=== PATIENT | female | born 1980 | race Hispanic/Latino ===

== ENCOUNTER → 2017-12-04 | Emergency (ER) | payer BC ==
[~2017-12-04] MED LIST: BACTRIM DS TAB1 EACH PO; LANTUS100 UNITS/ SQ; LEVOTHYROXINE125 MCG PO; NOVOLIN 70100 UNITS/ SQ; TRANDATE100 MG PO
== END | disposition left against medical advice (07) ==
LOC: ER 11:06
DX: E80.7 Disorder of bilirubin metabolism, unspecified (principal)

== ENCOUNTER 2018-10-28 09:04 | Inpatient (IN) | payer BC, OTHER ==
[~2018-10-28] VITALS: Ht 162.6 cm; Wt 96.2 kg
[2018-10-28] MEDS ORDERED: SODIUM CHLORIDE 0.9% 1000ML 1,000 ML IV STA ×3 (09:58→13:25)
[2018-10-28] MEDS ORDERED: ACETAMINOPHEN 325 MG TAB PO ONE (10:15)
[2018-10-28 10:19] LABS: CLARITY,URINE CLEAR (CLEAR); COLOR,URINE YELLOW (YELLOW); PREGNANCY TEST, URINE NEGATIVE (NEGATIVE)
[2018-10-28 10:20] LABS: BILIRUBIN,URINE NEGATIVE (NEGATIVE); KETONES,URINE NEGATIVE (NEGATIVE); LEUKOCYTE ESTERASE ,URINE NEGATIVE (NEGATIVE); NITRITE,URINE NEGATIVE (NEGATIVE); PROTEIN,URINE DIPSTICK NEGATIVE (NEGATIVE); URINE UROBILINOGEN 0.2 mg/dL (0.2 - 1)
[2018-10-28 10:22] LABS: BACTERIA,URINE FEW /HPF; EPITHELIAL CELLS,URINE FEW /LPF; RBC,URINE 0-5 /HPF (0-5); WBC,URINE (MAN) 0-5 /HPF (0-5)
[2018-10-28] MEDS ORDERED: KETOROLAC TROMETHAMINE 30 MG/ML VIAL IV ONE (10:30)
[2018-10-28] MEDS ORDERED: PANTOPRAZOLE 40 MG 10ML VIAL IV ONE (10:30)
[2018-10-28] MEDS ORDERED: ONDANSETRON HCL INJ 2MG/ML 2ML 2 MG/ML VIAL IV ONE (10:30)
[2018-10-28 10:46] LABS: BASOPHILS % 0.4 % (0.0-1.0); EOSINOPHILS # (AUTO) 0.1 (0.0-0.4); EOSINOPHILS % 1.3 % (0.0-6.0); HEMATOCRIT 42.4 % (34.2-44.1); HEMOGLOBIN 15.1 g/dL (12.0-16.0); LYMPHOCYTES # (AUTO) 1.1 (1.0-3.2); LYMPHOCYTES % 13.4 % (18.0-39.1); MEAN CORPUSCULAR HEMOGLOBIN 30.4 pg (28-32); MEAN CORPUSCULAR HGB CONC 35.6 g/dL (31-35); MEAN CORPUSCULAR VOLUME 85.5 fL (81-99); MONOCYTES # (AUTO) 0.6 (0.2-0.8); MONOCYTES % 7.1 % (4.4-11.3); NEUTROPHILS # (AUTO) 6.3 (2.1-6.9); NEUTROPHILS % 77.2 % (38.7-80.0); PLATELET COUNT 401 x10e3/uL (140-360); RED BLOOD COUNT 4.96 x10e6/uL (3.6-5.1); RED CELL DISTRIBUTION WIDTH 12.2 % (11.7-14.4)
[2018-10-28 11:02] LABS: ALANINE AMINOTRANSFERASE 102 IU/L (0-55); ALBUMIN 4.1 g/dL (3.5-5.0); ALBUMIN/GLOBULIN RATIO 1.2 (0.8-2.0); ALKALINE PHOSPHATASE 104 IU/L (40-150); ANION GAP 17.1 mmol/L (8-16); BLOOD UREA NITROGEN 8 mg/dL (7-26); BUN/CREATININE RATIO 9 (6-25); CALCIUM 9.5 mg/dL (8.4-10.2); CARBON DIOXIDE 23 mmol/L (22-29); CHLORIDE 98 mmol/L (98-107); CREATININE, SERUM 0.85 mg/dL (0.57-1.11); EST GLOMERULAR FILTRATION RATE > 60 ML/MIN (60-); GLUCOSE 194 mg/dL (74-118); POTASSIUM 4.1 mmol/L (3.5-5.1); SODIUM 134 mmol/L (136-145)
--- NOTE | 2018-10-28 11:37 | Diagnostic Imaging Report ---
EXAMINATION: CHEST 2 VIEWS INDICATION: ^SEPSIS ^Y COMPARISON: Chest x-ray 02/21/2013 FINDINGS: PA and lateral views. The patient's arms overlie the upper chest. TUBES and LINES: None. LUNGS: Lungs are well inflated. Right infrahilar airspace opacity corresponds to the right lower lobe. Left lung is clear. PLEURA: No pleural effusion or pneumothorax. HEART AND MEDIASTINUM: The cardiomediastinal silhouette is unremarkable.. BONES AND SOFT TISSUES: No focal osseous lesions. Soft tissues are unremarkable. UPPER ABDOMEN: No free air under the diaphragm. IMPRESSION: Right lower lobe airspace opacity is suggestive of pneumonia. Recommend close interval follow-up. Signed by: Dr. Tammy Luis MD on 10/28/2018 11:34 AM
[2018-10-28 12:07] LABS: AMYLASE 25 U/L (25-125); LIPASE 31 U/L (8-78)
--- NOTE | 2018-10-28 13:17 | Diagnostic Imaging Report ---
CT Abdomen And Pelvis with Intravenous Contrast INDICATION: ^ABD PAIN, N/V, ELEV LFT'S TECHNIQUE: Thin collimation axial images obtained from the diaphragm to the level of the pubic symphysis following the uneventful administration of 100 cc of low osmolar, nonionic intravenous contrast. Dose reduction techniques used: Automated exposure control, adjustment of the mAs and/or kVp according to patient size, standardized low-dose protocol, and/or iterative reconstruction technique. RADIATION DOSE: Total DLP: 709.6 mGy*cm Estimated effective dose: (DLP x 0.015 x size factor) mSv CTDIvol has been reviewed. It is below the limits set by the Radiation Protocol Committee (RPC). COMPARISON: CT abdomen/pelvis 12/07/2012, CTA abdomen/pelvis 02/21/2013. ABDOMEN FINDINGS: Lung Bases: Nodule in the anterior basal segment of the right lower lobe is stable and measures 3 mm. No pulmonary infiltrates. Visualized portion of the mediastinum is normal. Liver: Decreased attenuation consistent with steatosis. The right lobe measures 23 cm in length. * New predominantly hypoattenuating, heterogeneously enhancing lesion in segment 2 near the capsule measures 2.6 x 3.9 cm. * New focus of hypoattenuation in the anterior aspect of segment 4 measures 2.8 x 1.4 cm in the coronal plane. There is a nodular focus of increased attenuation at its superior aspect (coronal image 23). * New predominantly hypoattenuating, heterogeneously enhancing lesion in segment 6 measures 4.2 x 2.1 cm adjacent to the posterior capsule. * New hypoattenuating lesion in segment 5 is somewhat curvilinear in appearance and extends for approximately 3 cm. * New subcapsular focus of hypoattenuation the medial aspect of segment 6 measures 11 mm (series 2, image 31). * New subcapsular focus of hypoattenuation in segment 2/3 (series 2, image 29). No perihepatic fluid collection or inflammation. Gallbladder: Present and appears normal. Biliary tree: No biliary ductal dilatation. Pancreas: Normal attenuation without mass or ductal dilatation. Spleen: Top normal in size. No evidence of mass. Adrenal Glands: No evidence for mass. Kidneys: Right: Normal enhancement. No soft tissue mass. No hydronephrosis. Left: Normal enhancement. No soft tissue mass. No hydronephrosis. Lymph Nodes: No enlarged abdominal or retroperitoneal lymph nodes. Aorta: Normal in diameter. Portal vein: Measures 16 mm in diameter and is widely patent. PELVIS FINDINGS: Bowel: Stomach: Normal in caliber with normal wall thickness. Small Bowel: Normal in caliber with normal wall thickness. Large Bowel: Normal in caliber with normal wall thickness. Appendix: Normal appendix. Bladder: Normal. The uterus is present and normal in morphology. No adnexal mass. Peritoneum/retroperitoneum: No free fluid or fluid collection. Bones: Unremarkable for age. Soft tissues: Anterior abdominal wall subcutaneous mass in the right lower quadrant measures 2.1 x 2.5 cm (previously, 1.3 x 1.8 cm). No new subcutaneous masses. IMPRESSION: 1. Steatosis and hepatomegaly. New heterogeneously enhancing masses throughout the parenchyma. This may be the sequela of liver injury or the result of focal fat deposition. Another entity to consider would be a neoplastic process given increasing size of the abdominal wall skin mass. Recommend correlation with trauma history and MRI dedicated to the liver on an outpatient basis for further evaluation. 2. Enlarging right lower quadrant abdominal wall mass of uncertain etiology. Biopsy/excision is recommended. 3. Top normal size of the spleen and enlarged portal vein suggestive of portal hypertension. 4. No evidence of lymphadenopathy. 5. No evidence for bowel obstruction or inflammation. Normal appendix. Signed by: Dr. Tammy Luis MD on 10/28/2018 1:13 PM
[2018-10-28] MEDS: SODIUM CHLORIDE 0.9% 1000ML 1,000 ML IV ONE ×2 (13:30→13:49)
[2018-10-28] MEDS ORDERED: HYDROCODONE/CHLORPHENIRAMINE 5 ML LIQCR PO PRN (13:30)
[2018-10-28] MEDS ORDERED: SODIUM CHLORIDE 0.9% 1000ML 1,000 ML IV SCH (13:57)
[2018-10-28] MEDS ORDERED: IPRATROPIUM BROMIDE 0.02% 2.5 ML NEB NEB PRN (14:00)
[2018-10-28] MEDS ORDERED: ALBUTEROL SULF 0.083% NEB SOLN 3 ML NEB NEB PRN (14:00)
[2018-10-28] MEDS ORDERED: ONDANSETRON HCL INJ 2MG/ML 2ML 2 MG/ML VIAL IV PRN (14:00)
[2018-10-28] MEDS ORDERED: CEFTRIAXONE SOD 1 GM/NS 50 ML 50 ML IV SCH (14:00)
[2018-10-28] MEDS ORDERED: AMLODIPINE BESYL5 MG PO (14:05)
[2018-10-28] MEDS ORDERED: VICTOZA 2-0.6 MG/0.1 SC (14:05)
[2018-10-28] MEDS ORDERED: LOSARTAN-HCTZ1 EAC2 PO (14:06)
--- OUTSIDE RECORDS SUMMARY | 2018-10-28 14:07 | XMS REPORT ---
[facility] Address Unknown Phone Unavailable Care Team Providers Care Oil Analyst Name Role Phone Estrellita CHRIS Unavailable Unavailable Problems This patient has no known problems. Allergies, Adverse Reactions, Alerts This patient has no known allergies or adverse reactions. Medications This patient has no known medications. Results Test Description Test Time Test Comments Text Results Atomic Results Result Comments CT ABDOMEN/PELVIS W 2018-10-28 12:59:00 [place] [address] Patient Name: PRESTON LINARES MR #: [id number] : 1980 Age/Sex: 38/F Req #: [id number] Adm Physician: Ordered by: LUIS CHRIS MD Report #: [id number] Location: ER Room/Bed: Procedure: [id number] CT/CT ABDOMEN/PELVIS W Exam Date: Exam Time: REPORT STATUS: Signed CT Abdomen And Pelvis with Intravenous Contrast INDICATION: ABD PAIN, N/V, ELEV LFT'S TECHNIQUE: Thin collimation axial images obtained from the diaphragm to the level of the pubic symphysis following the uneventful administration of 100 cc of low osmolar, nonionic intravenous contrast. Dose reduction techniques used: Automated exposure control, adjustment of the mAs and/or kVp according to patient size, standardized low- dose protocol, and/or iterative reconstruction technique. RADIATION DOSE: Total DLP: 709.6 mGy*cm Estimated effective dose: (DLP x 0.015 x size factor) mSv CTDIvol has been reviewed. It is below the limits set by the Radiation Protocol Committee (RPC). COMPARISON: CT abdomen/pelvis 12/07/2012, CTA abdomen/pelvis 02/21/2013. ABDOMEN FINDINGS: Lung Bases: Nodule in the anterior basal segment of the right lower lobe is stable and measures 3 mm. No pulmonary infiltrates. Visualized portion of the mediastinum is normal. Liver: Decreased attenuation consistent with steatosis. The right lobe measures 23 cm in length. * New predominantly hypoattenuating, heterogeneously enhancing lesion in segment 2 near the capsule measures 2.6 x 3.9 cm. * New focus of hypoattenuation in the anterior aspect of segment 4 measures 2.8 x 1.4 cm in the coronal plane. There is a nodular focus of increased attenuation at its superior aspect (coronal image 23). * New predominantly hypoattenuating, heterogeneously enhancing lesion in segment 6 measures 4.2 x 2.1 cm adjacent to the posterior capsule. * New hypoattenuating lesion in segment 5 is somewhat curvilinear in appearance and extends for approximately 3 cm. * New subcapsular focus of hypoattenuation the medial aspect of segment 6 measures 11 mm (series 2, image 31). * New subcapsular focus of hypoattenuation in segment 2/3 (series 2, image 29). No perihepatic fluid collection or inflammation. Gallbladder: Present and appears normal. Biliary tree: No biliary ductal d ilatation. Pancreas: Normal attenuation without mass or ductal dilatation. Spleen: Top normal in size. No evidence of mass. Adrenal Glands: No evidence for mass. Kidneys: Right: Normal enhancement. No soft tissue mass. No hydronephrosis. Left: Normal enhancement. No soft tissue mass. No hydronephrosis. Lymph Nodes: No enlarged abdominal or retroperitoneal lymph nodes. Aorta: Normal in diameter. Portal vein: Measures 16 mm in diameter and is widely patent. PELVIS FINDINGS: Bowel: Stomach: Normal in caliber with normal wall thickness. Small Bowel: Normal in caliber with normal wall thickness. Large Bowel: Normal in caliber with normal wall thickness. Appendix: Normal appendix. Bladder: Normal. The uterus is present and normal in morphology. No adnexal mass. Peritoneum/retroperitoneum: No free fluid or fluid collection. Bones: Unremarkable for age. Soft tissues: Anterior abdominal wall subcutaneous ma ss in the right lower quadrant measures 2.1 x 2.5 cm (previously, 1.3 x 1.8 cm). No new subcutaneous masses. IMPRESSION: 1. Steatosis and hepatomegaly. New heterogeneously enhancing masses throughout the parenchyma. This may be the sequela of liver injury or the result of focal fat deposition. Another entity to consider would be a neoplastic process given increasing size of the abdominal wall skin mass. Recommend correlation with trauma history and MRI dedicated to the liver on an outpatient basis for further evaluation. 2. Enlarging right lower quadrant abdominal wall mass of uncertain etiology. Biopsy/excision is recommended. 3. Top normal size of the spleen and enlarged portal vein suggestive of portal hypertension. 4. No evidence of lymphadenopathy. 5. No evidence for bowel obstruction or inflammation. Normal appendix. Signed by: Dr. Elke Luis MD on 10/28/2018 1:13 PM Dictated By: ELKE LUIS MD [id number] Transcribed By: RIKI on 10/28/18 1313 COPY TO: LUIS CHRIS MD CHEST 2 VIEWS 2018-10-28 11:32:00 [place] [address] Patient Name: PRESTON LINARES MR #: [id number] : 1980 Age/Sex: 38/F Req #: [id number] Adm Physician: Ordered by: LUIS CHRIS MD Report #: [id number] Location: ER Room/Bed: Procedure: [id number] DX/CHEST 2 VIEWS Exam Date: Exam Time: REPORT STATUS: Signed EXAMINATION: CHEST 2 VIEWS INDICATION: SEPSIS Y CO MPARISON: Chest x-ray 02/21/2013 FINDINGS: PA and lateral views. The patient's arms overlie the upper chest. TUBES and LINES: None. LUNGS: Lungs are well inflated. Right infrahilar airspace opacity corresponds to the right lower lobe. Left lung is clear. PLEURA: No pleural effusion or pneumothorax. HEART AND MEDIASTINUM: The cardiomediastinal silhouette is unremarkable.. BONES AND SOFT TISSUES: No focal osseous lesions. Soft tissues are unremarkable. UPPER ABDOMEN: No free air under the diaphragm. IMPRESSION: Right lower lobe airspace opacity is suggestive of pneumonia. Recommend close interval follow-up. Signed by: Dr. Elke Luis MD on 10/28/2018 11:34 AM Dictated By: ELKE LUIS MD 1134 Transcribed By: RIKI on 10/28/18 1134 COPY TO: LUIS CHRIS MD
[2018-10-28] MEDS: AZITHROMYCIN 500MG/NS 250 ML 250 ML IV SCH (14:12)
[2018-10-28] MEDS ORDERED: ACETAMINOPHEN 325 MG TAB PO PRN (14:15)
--- NOTE | 2018-10-28 14:20 | NUR ---
Dr. Nicholson at bedside
--- NOTE | 2018-10-28 14:36 | NUR ---
Report called to nurse Josseline.
[2018-10-28] MEDS: METOPROLOL TARTRATE 25 MG TAB PO SCH ×2 (14:50→22:00)
[2018-10-28] MEDS: BENZONATATE 100 MG CAP PO SCH ×2 (14:50→20:36)
--- NOTE | 2018-10-28 15:00 | NUR ---
This 38 y/0 female admitted the unit from the ER with dx of pneumonia, dehydration,nausea,vomiting and heart rate in 120 range/ The pt arrived with tele and JOWL TRIMMER monitor in place Sinus tach at 118. There is an iv to the right ac with n/s infusing @150 cc/hr. Blood glucose 184. Antibiotic is infusing as well. The pt. is awake, alert and oriented times 4. She was initiated to the room.
[2018-10-28 16:05] VITALS: BP 139/71
[2018-10-28] MEDS: INSULIN LISPRO 100 UNIT/1 ML 3ML VIAL SQ SCH ×2 (16:30→20:37)
[2018-10-28 16:45] VITALS: BP 139/71
[2018-10-28 16:49] VITALS: BP 139/71
[2018-10-28] MEDS ORDERED: SODIUM CHLORIDE 0.9% 50ML 50 ML ONE (18:29)
[2018-10-28] MEDS ORDERED: IOPAMIDOL 370 MG/ML 200 ML INFUS..BTL INJ ONE (18:29)
--- NOTE | 2018-10-28 18:47 | NUR ---
Report to the oncoming nurse.
[2018-10-28 20:30] VITALS: BP 139/64
[2018-10-28 23:45] VITALS: BP 147/76
[2018-10-29 04:30] VITALS: BP 123/68
--- NOTE | 2018-10-29 05:26 | NUR ---
Patient laying in bed with HOB slightly elevated. AAO x 4. No sob noted. No acute distress noted. Patient reports of 0/10 for pain. Bed at low position and locked. Call light within reach and reminded patient to utilize when help is needed. Patient in stable condition and will continue to monitor. Patient noted with temp at 103.5 and HR at 140, also noted covered under 6 blankets and room temp very hot. Removed blankets, lower room temp and rechecked in 30mins and temp at 100.6 and HR at 122. Patient reports of no chest pain, no headache.
--- NOTE | 2018-10-29 07:10 | NUR ---
RCD PT AT BED PT IS ALERT AND ORIENTED ASSESSMENT DONE PT RESTING ON BED NO SIGNS OF ANY DISTRESS NOTED IV PATENT BED LOW AND LOCKED CALL LIGHT IN REACH
[2018-10-29 07:18] LABS: BASOPHILS % 0.1 % (0.0-1.0); EOSINOPHILS % 0.6 % (0.0-6.0); HEMOGLOBIN 12.7 g/dL (12.0-16.0); LYMPHOCYTES # (AUTO) 1.8 (1.0-3.2); LYMPHOCYTES % 26.6 % (18.0-39.1); MEAN CORPUSCULAR HGB CONC 33.4 g/dL (31-35); MEAN CORPUSCULAR VOLUME 89.6 fL (81-99); MONOCYTES # (AUTO) 0.6 (0.2-0.8); MONOCYTES % 9.3 % (4.4-11.3); NEUTROPHILS # (AUTO) 4.2 (2.1-6.9); NEUTROPHILS % 62.8 % (38.7-80.0); PLATELET COUNT 307 x10e3/uL (140-360); RED BLOOD COUNT 4.24 x10e6/uL (3.6-5.1); RED CELL DISTRIBUTION WIDTH 12.3 % (11.7-14.4)
[2018-10-29 07:29] LABS: PROTHROMBIN TIME 14.1 seconds (11.9-14.5)
[2018-10-29] MEDS: INSULIN LISPRO 100 UNIT/1 ML 3ML VIAL SQ SCH ×4 (07:30→20:59)
[2018-10-29 07:49] LABS: ALANINE AMINOTRANSFERASE 85 IU/L (0-55); ALBUMIN 3.3 g/dL (3.5-5.0); ALBUMIN/GLOBULIN RATIO 1.2 (0.8-2.0); ALKALINE PHOSPHATASE 84 IU/L (40-150); ANION GAP 13.8 mmol/L (8-16); BLOOD UREA NITROGEN 6 mg/dL (7-26); BUN/CREATININE RATIO 7 (6-25); CALCIUM 8.3 mg/dL (8.4-10.2); CARBON DIOXIDE 23 mmol/L (22-29); CHLORIDE 103 mmol/L (98-107); CREATININE, SERUM 0.81 mg/dL (0.57-1.11); EST GLOMERULAR FILTRATION RATE > 60 ML/MIN (60-); GLUCOSE 210 mg/dL (74-118); POTASSIUM 3.8 mmol/L (3.5-5.1); SODIUM 136 mmol/L (136-145)
[2018-10-29 08:00] VITALS: BP 100/52
[2018-10-29 09:00] VITALS: BP 100/52
[2018-10-29] MEDS: BENZONATATE 100 MG CAP PO SCH ×3 (09:00→20:58)
[2018-10-29] MEDS: CEFTRIAXONE SOD 1 GM/NS 50 ML 50 ML IV SCH (09:00)
[2018-10-29] MEDS ORDERED: SODIUM CHLORIDE 0.9% 250ML 250 ML ONE (09:09)
[2018-10-29] MEDS: AZITHROMYCIN 500MG/NS 250 ML 250 ML IV SCH (09:20)
[2018-10-29 12:00] VITALS: BP 112/59
--- NOTE | 2018-10-29 13:19 | NUR ---
SOCIAL WORK INITIAL ASSESSMENT Steel Wheel Engraver met with patient at bedside to discuss plan of care with patient/family. CM/SW role and care transitions discussed. Patient lives: with her two children (age 6 and 8) Admit/Transfer: Admit POA/Emergency contact: Francis Li (boyfriend) [phone] Current/Previous Home Health: N/A PCP/Follow-up Care: Does not have Dr. Jon Banuelos Current/Previous DME: N/A Other Services: Employment Status: works for [employer] Areas of Concerns: Referral Needs: Education Needs: IMM/ARREOLA given and signed (if applicable): Goal for discharge: Patient states children are being cared for by her boyfriends sister while in the hospital. Patient states she was independent of all ADL goal prior to hospital admission.
[2018-10-29 16:00] VITALS: BP 122/69
--- NOTE | 2018-10-29 16:00 | NUR ---
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
--- NOTE | 2018-10-29 18:41 | NUR ---
PT RESTING ON BED BED SIDE REPORT GIVEN TO ONCOMING NURSE
--- NOTE | 2018-10-29 19:40 | NUR ---
patient received. Patient is resting in bed. Resp even and unlabored. No acute distress noted. Patient denies of any pain or discomfort. tele in place. family at bed time. call light within reach. instruct to call for assistance. bed low/locked. continue to monitor closely
[2018-10-29 21:10] VITALS: BP 139/65
[2018-10-30 01:31] VITALS: BP 139/75
[2018-10-30 05:49] VITALS: BP 153/71
--- NOTE | 2018-10-30 07:10 | NUR ---
RCD PT AT BED PT IS ALERT AND ORIENTED ASSESSMENT DONE PT RESTING ON BED NO SIGNS OF ANY DISTRESS NOTED BED LOW AND LOCKED CALL LIGHT IN REACH
[2018-10-30] MEDS: INSULIN LISPRO 100 UNIT/1 ML 3ML VIAL SQ SCH ×3 (07:30→16:30)
[2018-10-30 08:30] VITALS: BP 150/70
[2018-10-30] MEDS ORDERED: LORAZEPAM INJ 2 MG/ML VIAL IV PRN (08:45)
[2018-10-30 09:00] VITALS: BP 150/70
[2018-10-30] MEDS: BENZONATATE 100 MG CAP PO SCH (09:00)
[2018-10-30] MEDS: CEFTRIAXONE SOD 1 GM/NS 50 ML 50 ML IV SCH ×2 (09:00→13:00)
[2018-10-30] MEDS ORDERED: AZITHROMYCIN 250 MG TAB PO SCH (11:15)
[2018-10-30] MEDS ORDERED: BENZONATATE 100 MG CAP PO PRN (11:30)
[2018-10-30] MEDS ORDERED: AZITHROMYCIN250 MG PO (11:41)
[2018-10-30 12:35] VITALS: BP 160/86
--- NOTE | 2018-10-30 12:52 | Discharge Summary ---
PRIMARY CARE DOCTOR: Dr. Kizzy Urbano. FINAL DIAGNOSIS: Sepsis present on admission due to community-acquired pneumonia. SECONDARY DIAGNOSES 1. Liver lesions on imaging studies. 2. Diabetes. 3. Hypertension. PROCEDURES/STUDIES PERFORMED 1. Computed tomography of the abdomen and pelvis. 2. Magnetic resonance imaging of the liver. CONSULTANTS: None. HISTORY: Per H&P. HOSPITAL COURSE: Patient was aggressively hydrated. She did spike a fever of 103. Finally her tachycardia got better. Patient has been afebrile for more than 24 hours now. Her influenza was negative. Patient's initial AST was 110, ALT was 102. INR is normal. Chest x-ray shows a right lower lobe pneumonia. Repeat LFTs were better. A CT shows liver lesions possibly due to fatty liver, also cannot rule out a liver injury potentially due to hypoperfusion with her sepsis. Currently we are waiting for MRI of the liver to be done. If unremarkable, patient will be going home. Her acute hepatitis panel is still pending. Patient also has a right lower quadrant just above her groin soft-tissue nodule. This was present on a CT scan six years ago. Patient stated she has been evaluated by a computer recycling worker before and thought to be a cyst. It is nontender. Patient will be going home on five more days of azithromycin. She received IV Rocephin and IV azithromycin here. Patient was seen and examined today. I will follow up on her hepatitis panel. It took 33 minutes total to discharge this patient. CONDITION ON DISCHARGE: Improved. DISCHARGE MEDICATIONS: Please see medication reconciliation form. GOLD BURR M.D. Job#: [id number] EV cc:KIZZY URBANO MD
[2018-10-30] MEDS ORDERED: GADOBENATE DIMEGLUMINE 1 ML IV ONE (13:47)
[2018-10-30 16:29] VITALS: BP 119/68
--- NOTE | 2018-10-30 16:53 | Diagnostic Imaging Report ---
EXAMINATION: MRI Abdomen with and without contrast. TECHNIQUE: Axial T1 nonfat sat in and out of phase, axial T2 fat sat, coronal T2 nonfat sat, axial DWI and ADC MR images of the abdomen were obtained before and after the administration of 20 cc of gadolinium. Axial T1 fat sat GRE dynamic images in precontrast, arterial, venous and delayed phases were obtained. CLINICAL HISTORY:Hepatic lesions on CT COMPARISON: CT abdomen and pelvis 10/28/2018 FINDINGS: Exam limited by motion artifact. LOWER THORAX: Unremarkable. LIVER: The hepatic contour is normal.. The liver is enlarged, measuring 21.9 cm in length and the right midclavicular line. Diffuse signal dropout of the hepatic parenchyma on out of phase images, consistent with diffuse steatosis. Several hepatic lesions are again identified, as follows: * Stable 2.8 x 1.4 cm T1 mildly hyperintense, T2 mildly hyperintense focal lesion in hepatic segment IV (series 3, image 40), which shows signal dropout on out of phase and fat suppressed images (for example series 3, image 39 and series 10, image 24), with mild enhancement of the most subcapsular portion (for example series 10, image 129). No mass effect, and there are normal vessels coursing through this lesion. No restricted diffusion. * Stable ill-defined 4.2 x 2 x 1 cm lesion in the peripheral aspect of hepatic segment , which shows T1 and T2 hyperintensity (series 3, images 50 and series 7, image 14) and signal dropout on fat-suppressed images (series 5, image 25). There is wedge-shaped enhancement of the most peripheral/subcapsular portion (series 10, image 142). No mass effect, and there are normal vessels coursing through this lesion. No restricted diffusion. * Similar mildly T1 and T2 hyperintense lesion in hepatic segment V (series 3, image 74 and series 7, image 24), which show signal dropout on out of phase images (series 3, image 73) as well as fat-suppressed images (series 10, image 44). No significant enhancement. No visible distortion or mass effect. * Previously described hypoattenuating areas in segment 2-3 and segment 2 near the capsule are not clearly visualized due to breathing motion artifact. No suspicious enhancing lesions. BILIARY: No ductal dilatation or filling defect. The gallbladder has a normal appearance. PANCREAS: No mass or ductal dilatation. SPLEEN: No splenomegaly. ADRENALS: No nodules. KIDNEYS: No hydronephrosis or solid enhancing mass in the imaged portion of the kidneys. PERITONEUM / RETROPERITONEUM: No upper abdominal free fluid. GI TRACT: No bowel dilation. LYMPH NODES: No upper abdominal lymphadenopathy. VESSELS: The celiac trunk, superior and inferior mesenteric and bilateral renal arteries are patent. The portal, superior mesenteric and splenic veins are patent. No collateral circulation. BONES AND SOFT TISSUES: No abnormal bone marrow signal. No soft tissue abnormalities. IMPRESSION: 1. Hepatomegaly with diffuse steatosis. 2. Several hepatic lesions as described which show no mass effect and have signal characteristics consistent with fat, which favor areas of focal fatty infiltration. Focal areas of hepatic injury could be considered if there is prior history of surgery. Hepatic angiomyolipomas or adenomas are less likely, given the lack of mass effect and enhancement characteristics. No suspicious enhancing lesions are identified. Signed by: Dr. Hesham Marks M.D. on 10/30/2018 4:50 PM
--- NOTE | 2018-10-30 17:10 | NUR ---
PAGED DR BURR TO NOTIFY THE REPORT AND LEFT MESSAGE
--- NOTE | 2018-10-30 17:29 | NUR ---
DR BURR RETURNED CALL NOTIFIED MRI REPORT AND GOT THE APPROVAL TO DISCHARGE
--- NOTE | 2018-10-30 18:02 | NUR ---
PT WENT HOME IN SAFE CONDITION
== END 2018-10-30 18:16 | disposition home or self-care (01) | DRG 871 ==
LOC: ER 09:04 → ERHOLD 13:57 → MED/SURG2 15:13
PROVIDERS: ADMIT Internal Medicine; ATTEND Internal Medicine
DX: A41.9 Sepsis, unspecified organism (principal); J18.9 Pneumonia, unspecified organism; R19.03 Right lower quadrant abdominal swelling, mass and lump; E11.65 Type 2 diabetes mellitus with hyperglycemia; I10 Essential (primary) hypertension; E03.9 Hypothyroidism, unspecified; Z82.49 Family history of ischemic heart disease and other diseases of the circulatory system; Z88.8 Allergy status to other drugs, medicaments and biological substances; E86.0 Dehydration; R16.0 Hepatomegaly, not elsewhere classified; K76.0 Fatty (change of) liver, not elsewhere classified; Z83.3 Family history of diabetes mellitus; K76.9 Liver disease, unspecified; Z79.4 Long term (current) use of insulin
CPT/HCPCS: 36415; 71046; 74177; 74183; 80053; 81001; 81025; 82150; 82948; 83518; 83605; 83690; 83735; 84443; 85025; 85610; 87040; 87070; 87086; 87400; 93005; 99284; J0456; J0696; J1885; J2060; J2405; J7030; J7050; Q9967

== ENCOUNTER 2023-03-10 13:52 | Emergency (ER) | payer BC, OTHER ==
[~2023-03-10] VITALS: Ht 162.6 cm; Wt 96.2 kg
[~2023-03-10 13:52] MED LIST changes: +AMLODIPINE BESYL5 MG PO; +AZITHROMYCIN250 MG PO; +LOSARTAN-HCTZ1 EAC2 PO; +VICTOZA 2-0.6 MG/0.1 SC
[2023-03-10] MEDS ORDERED: SODIUM CHLORIDE 0.9% 1000ML 1,000 ML IV STA ×2 (14:14→15:27)
[2023-03-10] MEDS ORDERED: ONDANSETRON HCL INJ 2MG/ML 2ML 2 MG/ML VIAL IV STA (14:14)
[2023-03-10 14:33] LABS: BASOPHILS % 0.2 % (0.0-1.0); EOSINOPHILS # (AUTO) 0.2 (0.0-0.4); EOSINOPHILS % 1.6 % (0.0-6.0); HEMATOCRIT 49.2 % (34.2-44.1); HEMOGLOBIN 16.9 g/dL (12.0-16.0); LYMPHOCYTES # (AUTO) 2.5 (1.0-3.2); LYMPHOCYTES % 20.9 % (18.0-39.1); MEAN CORPUSCULAR HEMOGLOBIN 30.2 pg (28-32); MEAN CORPUSCULAR HGB CONC 34.3 g/dL (31-35); MONOCYTES # (AUTO) 0.7 (0.2-0.8); MONOCYTES % 5.4 % (4.4-11.3); NEUTROPHILS # (AUTO) 8.7 (2.1-6.9); NEUTROPHILS % 71.7 % (38.7-80.0); PLATELET COUNT 529 x10e3/uL (140-360); RED BLOOD COUNT 5.59 x10e6/uL (3.6-5.1); RED CELL DISTRIBUTION WIDTH 12.9 % (11.7-14.4)
[2023-03-10 14:45] LABS: INR 0.97; PROTHROMBIN TIME 13.4 seconds (11.9-14.5)
[2023-03-10 14:46] LABS: PARTIAL THROMBOPLASTIN TIME 29.9 seconds (23.8-35.5)
[2023-03-10 15:03] LABS: ALANINE AMINOTRANSFERASE 18 IU/L (0-55); ALBUMIN 4.1 g/dL (3.5-5.0); ALBUMIN/GLOBULIN RATIO 0.9 (0.8-2.0); ALKALINE PHOSPHATASE 99 IU/L (40-150); BLOOD UREA NITROGEN 13 mg/dL (7-26); BUN/CREATININE RATIO 13 (6-25); CALCIUM 9.2 mg/dL (8.4-10.2); CARBON DIOXIDE 21 mmol/L (22-29); CHLORIDE 100 mmol/L (98-107); CREATINE KINASE 21 IU/L (29-168); GLUCOSE 219 mg/dL (74-118); MAGNESIUM 1.8 MG/DL (1.3-2.1); SODIUM 134 mmol/L (136-145)
[2023-03-10] MEDS ORDERED: IOPAMIDOL 370 MG/ML 100 ML INFUS..BTL INJ ONE (15:12)
[2023-03-10 15:35] LABS: CLARITY,URINE SL CLOUDY (CLEAR); COLOR,URINE YELLOW (YELLOW); LEUKOCYTE ESTERASE ,URINE NEGATIVE (NEGATIVE); NITRITE,URINE NEGATIVE (NEGATIVE); PROTEIN,URINE DIPSTICK 2+ (NEGATIVE)
[2023-03-10 15:36] LABS: KETONES,URINE 1+ (NEGATIVE); URINE UROBILINOGEN 0.2 mg/dL (0.2 - 1)
[2023-03-10 15:48] LABS: EPITHELIAL CELLS,URINE MANY /LPF
[2023-03-10 15:49] LABS: RBC,URINE 0-5 /HPF (0-5); WBC,URINE (MAN) 0-5 /HPF (0-5)
[2023-03-10 15:50] LABS: BACTERIA,URINE MODERATE /HPF
[2023-03-10 15:51] LABS: MUCUS,URINE MODERATE (RARE)
[2023-03-10 15:53] LABS: LIPASE 20 U/L (8-78)
[2023-03-10 16:31] LABS: THYROID STIMULATING HORMONE 1.971 uIU/mL (0.350-4.940)
[2023-03-10] MEDS ORDERED: DICYCLOMINE HCL20 MG PO (17:46)
[2023-03-10] MEDS ORDERED: ONDANSETRON ODT4 MG PO (17:46)
[2023-03-10 18:10] VITALS: BP 114/65; PULSE 98; RESP 19; TEMP 97.9; O2SAT 99
== END 2023-03-10 17:55 | disposition home or self-care (01) ==
LOC: ER 14:02
DX: R11.2 Nausea with vomiting, unspecified (principal); E86.0 Dehydration; R19.7 Diarrhea, unspecified; E11.65 Type 2 diabetes mellitus with hyperglycemia; E03.9 Hypothyroidism, unspecified; K76.9 Liver disease, unspecified; Z20.822 Contact with and (suspected) exposure to COVID-19; R94.31 Abnormal electrocardiogram [ECG] [EKG]
CPT/HCPCS: 36415; 71045; 74177; 80053; 81001; 82550; 83605; 83690; 83735; 84443; 84484; 84702; 85025; 85379; 85610; 85730; 87040; 87086; 93005; 99284; C9113; J0696; J2405; J7030; Q9967; U0002